=== PATIENT | male | born 1975 | race Caucasian/White ===

== ENCOUNTER → 2017-08-02 | Day surgery (SDC) | payer OTHER ==
[~2017-08-02] MED LIST: ALBUTEROL SULFATE 8GM INHALER. ONE; ATROPINE 0.5 MG/5 ML DISP.SYRIN. IV PRN; BACITRACIN 50,000 UNIT VIAL. ONE; BUPIVACAINE MPF 0.5% 30 ML VIAL. ONE; HYDR-2762 PO; HYDROcodone/APAP 7.5/325MG 1 TAB TABLET PO ONE; IV RINGERS SOLUTION,LACTATED 1,000 ML BAG. IV ONE; IV RINGERS SOLUTION,LACTATED 1,000 ML IV ONE; IV RINGERS SOLUTION,LACTATED 1,000 ML IV SCH; LIDOCAINE 1% PF 30 ML VIAL. ONE; MIDAZOLAM HCL PF 2 MG/2 ML VIAL. ONE; NALOXONE 0.4 MG/ML VIAL. IV PRN; ONDANSETRON PF 4 MG/2 ML VIAL. IV PRN; ceFAZolin 2GM PREMIX 2 GM/50 ML BAG IV ONE; ceFAZolin SODIUM 2 GM in IV DEXTROSE 5% 50 ML IV ONE; diphenhydrAMINE 50 MG/ML VIAL IV PRN; fentaNYL PF 250 MCG/5 ML VIAL ONE
[2017-08-02 10:26] LABS: BASO # 0.1 x10^3/uL (0.0-0.2); BASO % 1 % (0-3); EOS # 0.2 x10^3/uL (0.0-0.7); EOS % 2 % (0-3); HEMATOCRIT 42.7 % (39.0-53.0); HEMOGLOBIN 14.6 g/dL (13.0-17.5); LYMPH # 2.3 x10^3/uL (1.0-4.8); LYMPH % 32 % (24-48); MEAN CORPUSCULAR HEMOGLOBIN 29 pg (25-35); MEAN CORPUSCULAR HGB CONC 34 g/dL (31-37); MEAN CORPUSCULAR VOLUME 84 fL (79-100); MONO # 0.5 x10^3/uL (0.0-1.1); MONO % 7 % (0-9); NEUT # 4.1 x10^3uL (1.8-7.7); NEUT % 58 % (31-73); PLATELET COUNT 227 x10^3/uL (140-400); RED BLOOD COUNT 5.07 x10^6/uL (4.30-5.70); RED CELL DISTRIBUTION WIDTH 12.8 % (11.5-14.5); WHITE BLOOD COUNT 7.1 x10^3/uL (4.0-11.0)
[2017-08-02 10:33] LABS: POTASSIUM 4.1 mmol/L (3.5-5.1)
[2017-08-02 14:37] VITALS: BP 109/49
== END | disposition home or self-care (01) ==
LOC: SURG 09:48
PROVIDERS: ATTEND Anesthesiology Pain Medicine
DX: M96.1 Postlaminectomy syndrome, not elsewhere classified (principal); K21.9 Gastro-esophageal reflux disease without esophagitis; I10 Essential (primary) hypertension; Z87.440 Personal history of urinary (tract) infections; F32.9 Major depressive disorder, single episode, unspecified; J45.909 Unspecified asthma, uncomplicated; Z98.890 Other specified postprocedural states; Z79.01 Long term (current) use of anticoagulants
CPT/HCPCS: 36415; 63685; 80051; 85025; 85610; 85730; J0690; J2001; J2250; J3010; J3490; J7120; J7613; L8686; 99213